=== PATIENT | male | born 1970 | race Caucasian/White ===

== ENCOUNTER → 2021-12-12 | Outpatient (CLI) | payer BC ==
--- NOTE | 2021-12-13 08:12 | CA ---
Transthoracic Echo Report Name: Marcelo Bowman Age: 51 Gender: M : 1970 Exam Date: 12/12/2021 10:44 Exam Location: [place] [facility] Ht (in): 72 Wt (lb): 290 Ordering Physician: Lebron Belle MD Attending/Referring Phys: Compensation Coordinator Malou Huizar RDCS Procedure CPT: Indications: R03.0; Cardiac Hx: Technical Quality: Contrast 1: Total Dose (mL): Contrast 2: Total Dose (mL): MEASUREMENTS (Male / Female) Normal Values 2D ECHO LV Diastolic Diameter PLAX 4.8 cm 4.2 - 5.9 / 3.9 - 5.3 cm LV Systolic Diameter PLAX 3.4 cm IVS Diastolic Thickness 1.2 cm 0.6 - 1.0 / 0.6 - 0.9 cm LVPW Diastolic Thickness 1.3 cm 0.6 - 1.0 / 0.6 - 0.9 cm LV Relative Wall Thickness 0.5 RV Internal Dim ED PLAX 3.6 cm LA Systolic Diameter LX 3.5 cm 3.0 - 4.0 / 2.7 - 3.8 cm LA Volume 44.4 cm??? 18 - 58 / 22 - 52 cm??? M-MODE Aortic Root Diameter MM 3.5 cm AV Cusp Separation MM 2.3 cm DOPPLER AV Peak Velocity 129.2 cm/s AV Peak Gradient 6.7 mmHg MV Area PHT 4.0 cm??? Mitral E Point Velocity 85.8 cm/s Mitral A Point Velocity 63.4 cm/s Mitral E to A Ratio 1.4 MV Deceleration Time 191.0 ms MV E' Velocity 8.8 cm/s Mitral E to MV E' Ratio 9.7 FINDINGS Left Ventricle Left ventricular ejection fraction is estimated at 55-60 %. Left ventricular wall thickness normal. Mild concentric left ventricular hypertrophy. Right Ventricle Mild right ventricular dilatation. Unable to estimate the right ventricular systolic pressure. Right Atrium Normal right atrial size. Left Atrium Normal left atrial size. No evidence for an atrial septal defect. Mitral Valve Mitral valve thickened. Mild mitral regurgitation. Aortic Valve Trileaflet aortic valve. No aortic valve stenosis or regurgitation. Tricuspid Valve Structurally normal tricuspid valve. No tricuspid stenosis, regurgitation or prolapse. Pulmonic Valve Structurally normal pulmonic valve. Pericardium Normal pericardium. No pericardial effusion. Aorta Normal size aortic root and proximal ascending aorta. CONCLUSIONS Normal LV size and systolic function. Mild aortic valve sclerosis. No pericardial effusion. No significant abnormality on the Doppler exam Previewed by: Dr. Michael Jeong MD (Electronically Signed) Final Date: 13 December 2021 08:11
--- NOTE | 2021-12-13 09:45 | CA ---
Stress Echo Report Marcelo Bowman Age: 51 Gender: M : 1970 Exam Date: 12/12/2021 10:19 Exam Location: [place] Stress Ht (in): 72 Wt (lb): 290 Ordering Physician: Lebron Belle MD Referring Physician: LEBRON BELLE,, Bulk Cooler Installer: Malou Huizar RDCS Technologist Procedure CPT: Indication: R03.0 ICD-9 Codes: Rhythm: Patient History: Cardiac Medications: Medications in past 24 hours: Contrast: Stress Results Protocol: Dru Total dose(mL): Exercise Duration (min:sec): 7.[address] Depression (mm): Angina Score: Mullen Score: METS: 8.5 Resting HR: 72 Resting BP: 121 / 74 Peak HR: 158 Peak BP: 223 / 71 Max Predicted HR: 169 93 % Max Predicted HR Target HR: 144 Double Product: [id number] Stress Summary: BP Response: Reason for Termination: Reached target heart rate or work-load Cardiac Symptoms: Test terminated after reaching target heart rate (85% max predicted) ECG Analysis Resting ECG: Normal sinus rhythm within normal limits Stress ECG: No evidence of ischemia. Occasional ventricular couplet Arrhythmia: Echo Analysis Resting Echo: Normal wall motion wall thickening of all segments Peak Echo Analysis: Good augmentation of left ventricular wall motion wall thickening of all segments MEASUREMENTS (Male/Female) Normal Values CONCLUSIONS Patient walked for 7 minutes 10 seconds on a standard Dru protocol and achieved a maximal heart rate of 158 bpm. He had no symptoms of angina. There was one ventricular couplet rate of PVCs. No ST segment changes to indicate ischemia. Baseline echo revealed normal wall motion wall thickening. At peak exercise there was good augmentation of wall motion wall thickening of all segments suggesting that there is no evidence of stress-induced ischemia on the study. Normal stress test by EKG criteria with fair exercise capacity Normal stress echocardiogram without evidence of ischemia Dr. Michael Jeong MD (Electronically Signed) Final Date: 13 December 2021 09:44
== END | disposition home or self-care (01) ==
LOC: RADNMMAIN 09:38
PROVIDERS: ATTEND Family Medicine
DX: R03.0 Elevated blood-pressure reading, without diagnosis of hypertension (principal); I08.0 Rheumatic disorders of both mitral and aortic valves
CPT/HCPCS: 93306; 93351

== ENCOUNTER → 2023-04-19 | Outpatient (CLI) | payer OTHER ==
--- NOTE | 2023-04-19 17:40 | XR ---
PROCEDURE: XR hand complete LT - 3V DATE AND TIME: 04/19/2023 5:20 PM CLINICAL INDICATION: [facility]; S66.118A Additional: Anterior left wrist pain to forearm following blunt trauma at work. Pain with gripping mo tion of left hand/forearm. TECHNIQUE: Department protocol. COMPARISON: None FINDINGS: There is no fracture or malalignment. The soft tissues are unremarkable. IMPRESSION: No acute radiographic process.
--- NOTE | 2023-04-19 17:42 | XR ---
PROCEDURE: XR forearm LT - 2V DATE AND TIME: 04/19/2023 5:20 PM CLINICAL INDICATION: [facility]; S66.118A TECHNIQUE: Department protocol. Pain after trauma. COMPARISON: None FINDINGS: There is no fracture or malalignment. The soft tissues are unremarkable. IMPRESSION: No acute radiographic process.
== END | disposition home or self-care (01) ==
LOC: RADXRMAIN 17:01
PROVIDERS: ATTEND Emergency Medicine
DX: S66.118A Strain of flexor muscle, fascia and tendon of other finger at wrist and hand level, initial encounter (principal); X58.XXXA Exposure to other specified factors, initial encounter